=== PATIENT | male | born 1950 | race American Indian/Alaskan Native ===

== ENCOUNTER 2019-10-20 07:05 | Day surgery (SDC) | payer MEDICARE, MEDICAID ==
[2019-10-20 08:03] LABS: Basophils # (Auto) 0.1 K/mm3 (0.0-0.1); Basophils % (Auto) 0.8 % (0.0-1.8); Eosinophils # (Auto) 0.1 K/mm3 (0.0-0.4); Eosinophils % (Auto) 1.9 % (0.0-4.3); Hemoglobin 13.7 gm/dl (11.8-15.2); Lymphocytes # (Auto) 1.4 K/mm3 (1.2-5.4); Mean Corpuscular HGB Conc 33 % (32-34); Mean Corpuscular Volume 86 fl (84-94); Monocytes # (Auto) 0.5 K/mm3 (0.0-0.8); Monocytes % (Auto) 6.9 % (0.0-7.3); Platelet Count 271 K/mm3 (140-440); Red Blood Count 4.75 M/mm3 (3.65-5.03); Red Cell Distribution Width 14.1 % (13.2-15.2)
[2019-10-20] MEDS ORDERED: SODIUM CHLORIDE 0.9% 500 ML 500 ML ONE (08:13)
[2019-10-20 08:14] LABS: BUN/Creatinine Ratio 23; Blood Urea Nitrogen 16 mg/dL (9-20); Calcium 9.5 mg/dL (8.4-10.2); Hemolysis Index 7
[2019-10-20] MEDS: SODIUM CHLORIDE 0.9% 500 ML 500 ML IV SCH ×2 (08:17→11:09)
[2019-10-20] MEDS ORDERED: HEPARIN/NS 5000 UNIT/500ML 1,000 ML IR ONE (09:19)
[2019-10-20] MEDS ORDERED: NITROGLYCERIN SYRINGE 3 ML ONE (09:20)
[2019-10-20] MEDS: fentaNYL 100 MCG/2 ML INJ ONE ×2 (11:06→11:14)
[2019-10-20] MEDS: HEPARIN 10,000 UNITS/10 ML VIAL ONE ×3 (11:07→11:44)
[2019-10-20] MEDS: MIDAZOLAM 2 MG/2 ML INJ ONE ×2 (11:07→11:14)
[2019-10-20] MEDS: LIDOCAINE (2%) 20 MG/1 ML VIAL 20 ML MDV INFILTRATI ONE ×2 (11:07→11:14)
[2019-10-20] MEDS: VERAPAMIL 5 MG/2 ML INJ ONE ×2 (11:07→11:16)
--- NOTE | 2019-10-20 12:26 | Discharge Summary ---
Short Stay Discharge Plan Activity: advance as tolerated Weight Bearing Status: Partial Weight Bearing Diet: low fat, low cholesterol, low salt, diabetic Wound: keep clean and dry Special Instructions: no heavy lifting (3 days), hold Metformin (48 hrs only) Follow up with: JESICA HOLDER MD [Primary Care Provider] - 7 Days LUDIN LARA MD [Staff Physician] - 7 Days
[2019-10-20] MEDS ORDERED: SODIUM CHLORIDE 0.9% 1000 ML 1,000 ML IV SCH (12:30)
[2019-10-20] MEDS ORDERED: SODIUM CHLORIDE 0.9% 1000 ML 1,000 ML ONE (13:24)
--- NOTE | 2019-10-20 14:14 | Cardiac Catherization Report ---
CARDIAC CATHETERIZATION REPORT REASON FOR PROCEDURE: The patient is a 69-year-old man with heart failure, moderate severity cardiomyopathy, and an abnormal thallium stress test. He was recommended for a cardiac catheterization. PROCEDURES: 1. Left heart catheterization. 2. Selective left and right coronary angiography. 3. Left ventricular angiography. 4. Intravascular ultrasound interrogation of the left main coronary artery. 5. Sedation time, start 11:11, end 11:56. DESCRIPTION OF PROCEDURE: The patient was prepped and draped in a sterile fashion after informed consent. The right radial cath site was prepped and draped after a negative Sharad's test. The right radial artery was entered using Seldinger technique followed by placement of a 6-Welsh hydrophilic sheath. Routine radial cocktail was administered via the sheath. Selective left and right coronary angiography was performed using a #3.5 left Mike, and a #4 right Mike. There was a difficult catheter manipulation due to severe tortuosity of the right brachiocephalic trunk, catheter manipulation was difficult and challenging. Therefore, for the additional procedures of left ventricular catheterization and intravascular ultrasound of the left main stenosis, we switched to the right femoral artery approach for completion of the procedure. We turned our attention to the right femoral artery, which was entered again using the Seldinger technique followed by placement of a 6-Welsh sheath. A pigtail catheter was advanced into the left ventricle for left ventricular angiography. For interrogation of the left main, we then exchanged for a #4 left Mike guiding catheter and advanced to the left coronary ostium. A 0.[address] [employer] Maintenance Supervisor 50 guidewire was then introduced into the left main, and into the proximal LAD. Intravascular ultrasound was then deployed to the left main stenosis and appropriate interrogation of the proximal, mid and distal segments of the left main was performed. The catheters were then removed, post-IVUS angiograms were taken of the left main and left coronary system. The femoral sheath was removed and hemostasis achieved using an Angio-Seal device. The radial sheath was then also removed, and a TR band was placed for hemostasis. The patient was then returned to the postprocedure unit in stable condition. There were no complications. FINDINGS: HEMODYNAMICS: Left ventricular end-diastolic pressure was 18-20, following coronary angiography. Ascending aortic pressure was 155/86. There was no significant pressure gradient on pullback across the aortic valve. CORONARY ANGIOGRAPHY: There was an angiographic, 40-50% stenosis of the proximal left main, close to the ostium. Following this, the LAD and diagonal branches contained diffuse mild atherosclerosis, associated with [id number]-[id number] diffuse coronary calcification. The left circumflex artery contained diffuse mild atherosclerosis. The right coronary artery was dominant. This vessel contained multiple severe lesions. There was a focal 80% stenosis of the mid segment. This was followed by 2 sequential 90% stenosis of the distal AV groove segment, between the acute margin and the posterior descending branch. There was mild to moderate left ventricular systolic dysfunction, ejection fraction estimated at 40%, following an extrasystolic beat. INTRAVASCULAR ULTRASOUND: Intravascular ultrasound assessment of the left main stenosis was carried out. IVUS interrogation found mild concentric plaque throughout the length of the left main. The proximal segment contained a severe amount of concentric plaque with a minimum diameter of 2.5 mm, and an area stenosis of 59%. CONCLUSION: 1. Multivessel coronary artery disease. 2. Severe stenosis of the proximal left main, with a minimum diameter of 2.5 mm and an area stenosis of 59% on intravascular ultrasound imaging. 3. Dpgn-zr-fnwlrmai left ventricular systolic dysfunction, ejection fraction 40%. RECOMMENDATION: Optimal revascularization strategy will be coronary artery bypass surgery. JOB# [id number] JHONNY/ANDREI
[2019-10-20 18:01] VITALS: BP 137/84
== END 2019-10-20 18:38 | disposition home or self-care (01) ==
LOC: CATH 07:05
PROVIDERS: ATTEND Internal Medicine Cardiovascular Disease
DX: I11.0 Hypertensive heart disease with heart failure (principal); I50.9 Heart failure, unspecified; I42.9 Cardiomyopathy, unspecified; R94.39 Abnormal result of other cardiovascular function study; I25.10 Atherosclerotic heart disease of native coronary artery without angina pectoris; E11.59 Type 2 diabetes mellitus with other circulatory complications; Z79.899 Other long term (current) drug therapy; Z79.82 Long term (current) use of aspirin; Z98.890 Other specified postprocedural states; Z91.81 History of falling; Z86.73 Personal history of transient ischemic attack (TIA), and cerebral infarction without residual deficits; Z88.8 Allergy status to other drugs, medicaments and biological substances
CPT/HCPCS: 36415; 80048; 85025; 85347; 85610; 85730; 92978; 93005; 93458; 99156; 99157; C1753; C1760; C1769; C1887; C1894; J1644; J2250; J3010; J7030; J7040; Q9967

== ENCOUNTER 2019-12-02 11:18 | Observation (INO) | payer MEDICARE ==
--- NOTE | 2019-12-02 11:39 | Emergency Department Report ---
ED Neuro Deficit HPI - General Stated Complaint: POSS CVA Time Seen by Provider: 12/02/19 11:24 Source: patient Mode of arrival: Stretcher Limitations: No Limitations - History of Present Illness Initial Comments: 69-year-old male with a past medical history of previous CVA, CAD, elevated cholesterol, and diabetes presents to the hospital as a code stroke. Patient went immediately CT and received neurologic evaluation prior to my evaluation. Neurology was deemed that patient was not an acute stroke and not a TPA candidate. CT head was reported by radiologist questionable left cerebellar ischemic changes to correlate clinically. Neurologist states that patient does not have any cerebellar findings on exam. Patient was evaluated by me after above events. He states about 10:30 AM he was sitting down and watching TV when he felt lightheaded like he was going to pass out. Patient then vomited once and had fecal incontinence with mild diaphoresis. Patient denies headache, chest pain, shortness of breath, or abdominal pain. Prior to this episode patient was asymptomatic and was eating and drinking appropriately with last meal at breakfast. Patient also states he saw his PCP yesterday and had blood work and was told his cholesterol levels were "excellent". Patient reports history of multiple CVAs but denies any residual deficits. Patient feels better with resolution in symptoms at this time. As per medical record review patient was seen here for stroke symptoms in November 2013 and is noted to have chronic stable left hemiparesis without acute ischemic findings after work-up. His worsening neurologic symptoms at that time were thought to be functional. As per previous medical record review patient was also here in September 2019 with recommendation for revascularization procedure by cardiology with preferred outpatient treatment. Patient states coronary bypass surgery was recommended however, he opted not to obtain bypass for CAD because he was told he was at high risk for adverse events such as stroke. Patient had a cardiac cath 10/20/2019 showed multi vessel coronary artery disease. Severe stenosis of the proximal left main, with minimal diameter of 2.5 mm and an area of stenosis of 59% on intravascular ultrasound imaging. 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 heart PMD: DR Dia - Related Data Home Medications: Home Medications Medication Instructions Recorded Confirmed Last Taken Fish Oil/Borage/Flax/Om3,6,9 1 1,200 mg PO DAILY 10/20/19 12/02/19 10/19/19 [[place] 3-6-9 1,200 mg Softgel] Simvastatin 40 mg PO DAILY 10/20/19 12/02/19 10/19/19 Metformin HCl [metFORMIN] 1,000 mg PO BID 12/02/19 12/02/19 12/02/19 18:00 Previous Rx's Medication Instructions Recorded Last Taken Type Aspirin 81 mg PO QDAY #30 tablet 12/08/13 10/19/19 Rx Lisinopril [Zestril] 40 mg PO DAILY #30 tablet 12/08/13 10/19/19 Rx Allergies/Adverse Reactions: Allergies Allergy/AdvReac Type Severity Reaction Status Date / Time acetaminophen [From Percocet] Allergy Intermediate Dizziness Verified 10/20/19 07:29 oxycodone [From Percocet] Allergy Intermediate Dizziness Verified 10/20/19 07:29 ED Review of Systems ROS: Stated complaint: POSS CVA Other details as noted in HPI Comment: All other systems reviewed and negative ED Past Medical Hx - Past Medical History Hx Hypertension: Yes Hx CVA: Yes (x5 with no residual) Hx Diabetes: Yes - Surgical History Additional Surgical History: left arm ortho surgery - Social History Smoking Status: Former Smoker - Medications Home Medications: Home Medications Medication Instructions Recorded Confirmed Last Taken Type Aspirin 81 mg PO QDAY #30 tablet 12/08/13 12/02/19 10/19/19 Rx Lisinopril [Zestril] 40 mg PO DAILY #30 tablet 12/08/13 12/02/19 10/19/19 Rx Fish Oil/Borage/Flax/Om3,6,9 1 1,200 mg PO DAILY 10/20/19 12/02/19 10/19/19 History [[place] 3-6-9 1,200 mg Softgel] Simvastatin 40 mg PO DAILY 10/20/19 12/02/19 10/19/19 History Metformin HCl [metFORMIN] 1,000 mg PO BID 12/02/19 12/02/19 12/02/19 18:00 History ED Neuro Physical Exam - General Suspected Stroke: No - NIHSS Assessment Interval: Baseline 1a. Level of Consciousness: alert/keenly responsive 1b. LOC Questions: answers both correctly 1c. LOC Commands: performs tasks correctly 2. Best Gaze: normal 3. Visual: no visual loss 4. Facial Palsy: minor paralysis 5b. Motor Arm Right: no drift 5a. Motor Arm Left: no drift 6a. Motor Leg Left: no drift 6b. Motor Leg Right: no drift 7. Limb Ataxia: absent 8. Sensory: normal 9. Best Language: no aphasia 10. Dysarthria: normal 11. Extinction/Inattention: no abnormality Total Score: 1 Stroke Severity: Minor Stroke - Other Other exam information: General: No acute distress Head: Atraumatic Eyes: normal appearance ENT: Moist mucous membranes, edentulous Neck: Normal appearance, no midline tenderness Chest: Clear to auscultation bilaterally CV: Regular rate and rhythm Abdomen: Soft, normal bowel sounds, nontender, nondistended, no rebound or guarding Back: Normal inspection Extremity: Normal inspection, full range of motion Neuro: Alert O x 3, see NIH stroke scale exam Psych: Appropriate behavior Skin: No rash ED Course Vital Signs 12/02/19 12/02/19 11:19 12:00 Temperature 97.7 F Pulse Rate 62 75 Respiratory 17 15 Rate Blood Pressure 124/78 124/78 O2 Sat by Pulse 98 98 Oximetry - Lab Data Result diagrams: 12/02/19 11:42 12/03/19 05:03 Lab Results 12/02/19 12/02/19 12/02/19 Range/Units 11:42 11:42 11:42 WBC 9.2 (4.5-11.0) K/mm3 RBC 4.20 (3.65-5.03) M/mm3 Hgb 12.3 (11.8-15.2) gm/dl Hct 37.0 (35.5-45.6) % MCV 88 (84-94) fl MCH 29 (28-32) pg MCHC 33 (32-34) % RDW 14.0 (13.2-15.2) % Plt Count 256 (140-440) K/mm3 Lymph % (Auto) 12.2 L (13.4-35.0) % [place] % (Auto) 5.8 (0.0-7.3) % Eos % (Auto) 1.4 (0.0-4.3) % Baso % (Auto) 0.6 (0.0-1.8) % Lymph # 1.1 L (1.2-5.4) K/mm3 [place] # 0.5 (0.0-0.8) K/mm3 Eos # 0.1 (0.0-0.4) K/mm3 Baso # 0.1 (0.0-0.1) K/mm3 Seg Neutrophils % 80.0 H (40.0-70.0) % Seg Neutrophils # 7.3 (1.8-7.7) K/mm3 PT 13.5 (12.2-14.9) Sec. INR 1.05 (0.87-1.13) APTT 24.2 (24.2-36.6) Sec. Thrombin Time 15.3 (15.1-19.6) Sec. Sodium 136 L (137-145) mmol/L Potassium 4.4 (3.6-5.0) mmol/L Chloride 99.3 (98-107) mmol/L Carbon Dioxide 24 (22-30) mmol/L Anion Gap 17 mmol/L BUN 15 (9-20) mg/dL Creatinine 0.8 (0.8-1.5) mg/dL Estimated GFR > 60 ml/min BUN/Creatinine Ratio 19 % Glucose 149 H (75-100) mg/dL Calcium 8.9 (8.4-10.2) mg/dL Troponin T < 0.010 (0.00-0.029) ng/mL - Radiology Data Radiology results: report reviewed CT HEAD WITHOUT CONTRAST INDICATION : MAIN: CODE STROKE CALL [phone] . TECHNIQUE: Axial imaging performed from the skull apex through the skull base without the use of contrast. Sagittal and coronal reformatted images. All CT scans at this location are performed using CT dose reduction for ALARA by means of automated exposure control. COMPARISON: None FINDINGS: Parenchyma: Mild diffuse cortical volume loss and mild chronic microangiopathy in the white matter is identified. There are 2 chronic lacunar infarcts in the right basal ganglia measuring up to 1 cm. A 5 mm chronic lacunar infarct is identified in the left basal ganglia. There is a questionable 3 cm area of diminished attenuation in the inferior left cerebellum. There is no evidence for hemorrhage, mass, mass effect or extra-axial fluid collection. Ventricles: Ventricles are normal in size and appear symmetric. Bones: No acute osseous abnormality. Sinuses: Sinuses and mastoid air cells are clear. Soft tissues: Soft tissues including the orbits appear normal. IMPRESSION: No evidence for hemorrhage, mass or mass effect. Questionable area of diminished attenuation in the left cerebellum which could represent an ischemic infarct. Please correlate with the patient's clinical presentation. Volume loss. Chronic lacunar infarcts in both basal ganglia as described. - Medical Decision Making Patient presents with near syncope. No acute stroke findings noted. CT report noted and patient does not have cerebellar findings on examination. Neurologist recommends inpatient MRI based on CT report. Patient has significant CAD with recommended revascularization 2 months ago which patient declined. EKG uncha nged, initial troponin normal with repeat level pending. Pt will be admitted to hospitalist service with cardiology consult. Critical Care Time: No Critical care attestation.: If time is entered above; I have spent that time in minutes in the direct care of this critically ill patient, excluding procedure time. ED Disposition Clinical Impression: Near syncope, Diabetes, History of CVA (cerebrovascular accident) CAD (coronary artery disease) Qualifiers: Coronary Disease-Associated Artery/Lesion type: burns paiute artery Disposition: OP ADMIT IP TO THIS HOSP Is pt being admited?: Yes Condition: Stable Time of Disposition: 12:50 (Dr Valdez/hosp)
--- NOTE | 2019-12-02 11:44 | Consultation ---
History of Present Illness - Reason for Consult Consult date: 12/02/19 sa - History of Present Illness [facility] Consult Services Date of Service: 12/02/2019 11:17:06 Impression: syncope - no new stroke like deficits vs worsening of old stroke deficits Comments/Sign-Out: 69yo M w pmh of stroke x 3 (last in 2012 on plavix), unclear if he had facial asymmetry before who had syncope this am. He was noted to have facial asymmetry. He thinks his face looks as usual. nihss 1 for pre-existent mild facial asymmetry. Not candidate for tpa or steve. Presentation not c/w proximal LVO. Metrics: Last Known Well: 12/02/2019 10:30:00 [facility] Notification Time: 12/02/2019 11:16:33 Arrival Time: 12/02/2019 11:18:00 Stamp Time: 12/02/2019 11:17:06 Time First Login Attempt: 12/02/2019 11:21:43 Video Start Time: 12/02/2019 11:21:43 Symptoms: facial droop NIHSS Start Assessment Time: 12/02/2019 11:30:00 Patient is not a candidate for tPA. Patient was not deemed candidate for tPA thrombolytics because of Resolved symptoms (no residual disabling symptoms). Video End Time: 12/02/2019 11:37:00 CT head showed no acute hemorrhage or acute core infarct. Clinical Presentation is not Suggestive of Large Vessel Occlusive Disease ED Physician notified of diagnostic impression and management plan on 12/02/2019 11:37:04 Our recommendations are outlined below. Recommendations: Activate Stroke Protocol Admission/Order Set Stroke/Telemetry Floor Neuro Checks Bedside Swallow Eval DVT Prophylaxis IV Fluids, Normal Saline Head of Bed 30 Degrees Euglycemia and Avoid Hyperthermia (PRN Acetaminophen) Antiplatelet Therapy Recommended home therapy Routine Consultation with Inhouse Neurology for Follow up Care Sign Out: Discussed with Emergency Department Provider History of Present Illness: Patient is a 69 year old Male. Patient was brought by EMS for symptoms of facial droop 69yo M w pmh of stroke x 3 (last in 2012) w residual L HP, unclear if he had facial asymmetry before who had syncope this am. He was noted to have facial asymmetry. He thinks his face looks as usual. Last seen normal was within 4.5 hours. There is no history of Recent Anticoagulants. There is no history of recent stroke. Examination: 1A: Level of Consciousness - Alert; keenly responsive + 0 1B: Ask Month and Age - Both Questions Right + 0 1C: Blink Eyes & Squeeze Hands - Performs Both Tasks + 0 2: Test Horizontal Extraocular Movements - Normal + 0 3: Test Visual [place]all[place] - No Visual Loss + 0 4: Test Facial Palsy (Use Grimace if Obtunded) - Minor paralysis (flat nasolabial fold, smile asymmetry) + 1 5A: Test Left Arm Motor Drift - No Drift for 10 Seconds + 0 5B: Test Right Arm Motor Drift - No Drift for 10 Seconds + 0 6A: Test Left Leg Motor Drift - No Drift for 5 Seconds + 0 6B: Test Right Leg Motor Drift - No Drift for 5 Seconds + 0 7: Test Limb Ataxia (FNF/Heel-Quezada) - No Ataxia + 0 8: Test Sensation - Normal; No sensory loss + 0 9: Test Language/Aphasia - Normal; No aphasia + 0 10: Test Dysarthria - Normal + 0 11: Test Extinction/Inattention - No abnormality + 0 NIHSS Score: 1 Due to the immediate potential for life-threatening deterioration due to underlying acute neurologic illness, I spent 35 minutes providing critical care. This time includes time for face to face visit via telemedicine, review of medical records, imaging studies and discussion of findings with providers, the patient and/or family. Dr Anaya Patel [facility] Case [id number] Medications and Allergies Allergies Allergy/AdvReac Type Severity Reaction Status Date / Time acetaminophen [From Percocet] Allergy Intermediate Dizziness Verified 10/20/19 07:29 oxycodone [From Percocet] Allergy Intermediate Dizziness Verified 10/20/19 07:29 Home Medications Medication Instructions Recorded Confirmed Last Taken Type Aspirin 81 mg PO QDAY #30 tablet 12/08/13 10/20/19 10/19/19 Rx Lisinopril [Zestril] 40 mg PO DAILY #30 tablet 12/08/13 10/20/19 10/19/19 Rx Fish Oil/Borage/Flax/Om3,6,9 1 1,200 mg PO DAILY 10/20/19 10/20/19 10/19/19 History [[place] 3-6-9 1,200 mg Softgel] Nitroglycerin [Nitrostat] 0.4 mcg SL Q3MIN PRN 10/20/19 10/20/19 10/19/19 History Simvastatin 40 mg PO DAILY 10/20/19 10/20/19 10/19/19 History
[2019-12-02 11:48] LABS: Basophils # (Auto) 0.1 K/mm3 (0.0-0.1); Basophils % (Auto) 0.6 % (0.0-1.8); Eosinophils # (Auto) 0.1 K/mm3 (0.0-0.4); Eosinophils % (Auto) 1.4 % (0.0-4.3); Hemoglobin 12.3 gm/dl (11.8-15.2); Lymphocytes # (Auto) 1.1 K/mm3 (1.2-5.4); Lymphocytes % (Auto) 12.2 % (13.4-35.0); Mean Corpuscular HGB Conc 33 % (32-34); Mean Corpuscular Volume 88 fl (84-94); Monocytes # (Auto) 0.5 K/mm3 (0.0-0.8); Monocytes % (Auto) 5.8 % (0.0-7.3); Platelet Count 256 K/mm3 (140-440)
--- NOTE | 2019-12-02 11:52 | Cat Scan Report ---
CT HEAD WITHOUT CONTRAST INDICATION : MAIN: CODE STROKE CALL [phone] . TECHNIQUE: Axial imaging performed from the skull apex through the skull base without the use of con trast. Sagittal and coronal reformatted images. All CT scans at this location are performed using C T dose reduction for ALARA by means of automated exposure control. COMPARISON: None FINDINGS: Parenchyma: Mild diffuse cortical volume loss and mild chronic microangiopathy in the white matter i s identified. There are 2 chronic lacunar infarcts in the right basal ganglia measuring up to 1 cm. A 5 mm chronic lacunar infarct is identified in the left basal ganglia. There is a questionable 3 cm a rosita of diminished attenuation in the inferior left cerebellum. There is no evidence for hemorrhage, m ass, mass effect or extra-axial fluid collection. Ventricles: Ventricles are normal in size and appear symmetric. Bones: No acute osseous abnormality. Sinuses: Sinuses and mastoid air cells are clear. Soft tissues: Soft tissues including the orbits appear normal. IMPRESSION: No evidence for hemorrhage, mass or mass effect. Questionable area of diminished attenuation in the l eft cerebellum which could represent an ischemic infarct. Please correlate with the patient's clinica l presentation. Volume loss. Chronic lacunar infarcts in both basal ganglia as described. These findings were discussed with Dr. Duval in the emergency department at 1146 hours. Signer Name: Cesar Thomas Jr, MD Signed: 12/02/2019 11:47 AM Workstation Name: [id number]
[2019-12-02 11:58] LABS: INR 1.05 (0.87-1.13); Partial Thromboplastin Time 24.2 Sec. (24.2-36.6)
[2019-12-02 11:59] LABS: Thrombin Time 15.3 Sec. (15.1-19.6)
[2019-12-02 12:14] LABS: BUN/Creatinine Ratio 19; Blood Urea Nitrogen 15 mg/dL (9-20); Calcium 8.9 mg/dL (8.4-10.2); Hemolysis Index 2
--- NOTE | 2019-12-02 13:01 | XRay Report ---
CHEST 1 VIEW INDICATION: near syncope. COMPARISON: None. FINDINGS: Support devices: None. Heart: Normal. Lungs/Pleura: No acute pulmonary or pleural findings. IMPRESSION: 1. No acute findings. Signer Name: Renzo Cornejo MD Signed: 12/02/2019 12:57 PM Workstation Name: [id number]
[2019-12-02] MEDS ORDERED: ONDANSETRON 4 MG/2 ML INJ IV PRN (14:18)
[2019-12-02] MEDS ORDERED: ACETAMINOPHEN 325 MG TAB PO PRN (14:18)
[2019-12-02] MEDS ORDERED: NITROGLYCERIN 0.4 MG TAB SUBL SL SCH (14:20)
[2019-12-02] MEDS ORDERED: SODIUM CHLORIDE 0.9% 500 ML 500 ML IV ONE (14:24)
--- NOTE | 2019-12-02 14:25 | History and Physical Report ---
History of Present Illness Chief complaint: I got lightheaded History of present illness: 69 YO Male with HTN, HLD, CAD but patient declines CABG at this time, DM presents to ED for evaluation. Patient states that he was in his usual state of health and was sitting on his couch watching television. Patient states that he had been watching television for approximately 2 hours when he experienced a sudden onset of "lightheadedness" and then "lost control of my bowels". EMS was notified and upon arrival the patient was found to be in distress and subsequently transported to [facility] for further evaluation and care. Patient seen and evaluated in the emergency department. Lab and imaging studies reviewed. A code stroke was initiated by EMS staff and upon arrival the patient was taken directly to CT for brain imaging. CT scan of the brain does not reveal evidence of acute stroke. Patient found to have symptoms consistent with presyncope, as well as benign positional vertigo. Patient placed in observation status and admitted to telemetry for further evaluation and care due to increased risk of decompensation. Patient denies fever, chills, chest pain, palpitations, productive cough, recent ill contacts, seizure, fall, trauma, headache, vision loss, vision changes, saddle anesthesia, changes in speech, recent ill contacts, muscular weakness, or known exposure to COVID-19. Tele-neurology was consulted in ED. prior admission on 12/02/2013 reviewed. All medication listed at the time of my admission has been reconciled. Advanced care planning conducted in ED. Physical therapy consult placed in ED for Anupam-Hallpike test. Past History Past Medical History: CAD, diabetes, hypertension, other (See HPI) Past Surgical History: Other (Left arm surgery) Social history: . denies: smoking, alcohol abuse, prescription drug abuse Family history: diabetes, hypertension Medications and Allergies Allergies Allergy/AdvReac Type Severity Reaction Status Date / Time acetaminophen [From Percocet] Allergy Intermediate Dizziness Verified 10/20/19 07:29 oxycodone [From Percocet] Allergy Intermediate Dizziness Verified 10/20/19 07:29 Home Medications Medication Instructions Recorded Confirmed Last Taken Type Aspirin 81 mg PO QDAY #30 tablet 12/08/13 10/20/19 10/19/19 Rx Lisinopril [Zestril] 40 mg PO DAILY #30 tablet 12/08/13 10/20/19 10/19/19 Rx Fish Oil/Borage/Flax/Om3,6,9 1 1,200 mg PO DAILY 10/20/19 10/20/19 10/19/19 History [[place] 3-6-9 1,200 mg Softgel] Nitroglycerin [Nitrostat] 0.4 mcg SL Q3MIN PRN 10/20/19 10/20/19 10/19/19 History Simvastatin 40 mg PO DAILY 10/20/19 10/20/19 10/19/19 History Active Meds: Active Medications Acetaminophen (Tylenol) 650 mg PO Q4H PRN PRN Reason: Pain MILD(1-3)/Fever >100.5/BOSWELL Aspirin (Aspirin) 81 mg PO QDAY SHAWN Lisinopril (Zestril) 40 mg PO DAILY SHAWN Miscellaneous Medication (Fish Oil/Borage/Flax/Om3,6,9 1 [[place] 3-6-9 1,200 Mg Softgel]) 1,200 mg PO DAILY SHAWN Miscellaneous Medication (Simvastatin [Simvastatin]) 40 mg PO DAILY [facility] Nitroglycerin (Nitrostat) 0.0004 mg SL Q3MIN PRN PRN Reason: Chest Pain Ondansetron HCl (Zofran) 4 mg IV Q8H PRN PRN Reason: Nausea And Vomiting Sodium Chloride (Sodium Chloride Flush Syringe 10 Ml) 10 ml IV BID SHAWN Sodium Chloride (Sodium Chloride Flush Syringe 10 Ml) 10 ml IV PRN PRN PRN Reason: LINE FLUSH Review of Systems Constitutional: other (Lightheadedness), no weight loss, no weight gain, no fever, no chills, no sweats Ears, nose, mouth and throat: no ear pain, no ear discharge, no tinnitis, no decreased hearing, no nasal congestion, no nasal discharge Cardiovascular: lightheadedness, no chest pain, no orthopnea, no palpitations, no edema, no syncope, no dyspnea on exertion Respiratory: no cough, no cough with sputum, no excessive sputum, no shortness of breath, no dyspnea on exertion Gastrointestinal: nausea, vomiting, no abdominal pain, no diarrhea, no change in bowel habits, no hematemesis Genitourinary Male: no hematuria, no flank pain, no discharge Rectal: no pain, no incontinence, no bleeding Musculoskeletal: no neck pain, no shooting arm pain, no low back pain, no shooting leg pain Integumentary: no rash (This is a little paperwork for overnight stay), no pruritis, no sores, no wounds, no jaundice Neurological: no head injury, no paralysis, no parathesias, no numbness, no tingling, no seizures, no syncope, no tremors, no headaches, no migraines, no t ic, no convulsions, no change in mentation, no confusion Psychiatric: no anxiety, no memory loss, no change in sleep habits, no insomnia, no hypersomnia, no change in libido, no disorientation Endocrine: no cold intolerance, no heat intolerance, no excessive thirst, no polyuria Hematologic/Lymphatic: no easy bruising, no easy bleeding, no lymphadenopathy Allergic/Immunologic: no urticaria, no allergic rhinitis, no persistent infections, no anaphylaxis Exam - Constitutional Vitals: Temp Pulse Resp BP Pulse Ox 97.7 F 62 19 113/64 98 12/02/19 12:30 12/02/19 12:30 12/02/19 12:30 12/02/19 12:30 12/02/19 12:30 General appearance: Present: mild distress - EENT Eyes: Present: PERRL ENT: hearing intact, clear oral mucosa - Neck Neck: Present: supple, normal ROM - Respiratory Respiratory effort: normal Respiratory: bilateral: CTA - Cardiovascular Heart Sounds: Present: S1 & S2. Absent: rub, click - Extremities Extremities: pulses symmetrical, No edema Peripheral Pulses: within normal limits - Abdominal General gastrointestinal: Present: soft, non-tender, non-distended, normal bowel sounds Male genitourinary: Present: normal - Integumentary Integumentary: Present: clear, warm, dry - Musculoskeletal Musculoskeletal: other (Chronic bilateral lower extremity weakness) - Psychiatric Psychiatric: appropriate mood/affect, intact judgment & insight - Neurologic Neurologic: CNII-XII intact, moves all extremities HEART Score - HEART Score Troponin: Troponin T < 0.010 ng/mL (0.00-0.029) 12/02/19 11:42 Results - Labs CBC & Chem 7: 12/02/19 11:42 12/02/19 11:42 Labs: Abnormal lab results 12/02/19 12/02/19 Range/Units 11:42 11:42 Lymph % (Auto) 12.2 L (13.4-35.0) % Lymph # 1.1 L (1.2-5.4) K/mm3 Seg Neutrophils % 80.0 H (40.0-70.0) % Sodium 136 L (137-145) mmol/L Glucose 149 H (75-100) mg/dL Assessment and Plan - Patient Problems (1) Pre-syncope Current Visit: Yes Status: Acute Plan to address problem: CT head, neuro check, seizure precaution, tele-neurology consulted in ED, supportive care, Anupam-Hallpike test ordered at the time of admission, outpatient neurology follow-up for further testing/MRI evaluation as per neurology they really found to order an MRI patient service (2) Hypertension Current Visit: Yes Status: Acute Qualifiers: Hypertension type: essential hypertension Qualified Code(s): I10 - Essential (primary) hypertension Plan to address problem: Monitor blood pressure every shift, patient is normotensive at this time, continue medical management. (3) Diabetes Current Visit: Yes Status: Acute Plan to address problem: Consistent carbohydrate diet, Accu-Chek, sliding scale insulin therapy, hypoglycemia protocol (4) Coronary artery disease Current Visit: Yes Status: Acute Qualifiers: Coronary Disease-Associated Artery/Lesion type: [place] artery Plan to address problem: Supportive care, risk factor reduction therapy, antiplatelet therapy, statin therapy, lipid panel, outpatient coronary artery bypass grafting has been rec ommended. Awaiting patient decision regarding care plan. (5) DVT prophylaxis Current Visit: Yes Status: Acute Plan to address problem: SCD to bilateral lower extremities while in bed, patient is ambulatory. (6) Advance care planning Current Visit: Yes Status: Acute Plan to address problem: Patient is full code, disease education conducted, patient acknowledges understanding and agreement with care plan, +30 minutes.
--- NOTE | 2019-12-02 17:41 | Consultation ---
History of Present Illness Consult date: 12/02/19 Consult reason: syncope History of present illness: The patient is a 69-year-old man with a history of coronary artery disease and i schemic cardiomyopathy. Last month, we performed a cardiac catheterization that revealed multivessel coronary artery disease including a significant stenosis of the mid to distal left main coronary artery. He was referred to [place] for CT surgery evaluation. After all the preparation was done for coronary artery bypass, on the night before surgery he suddenly decided against surgery, worried about the risks. He thought he might prefer coronary stenting if that could be done. We then referred him to undergo multivessel stenting including unprotected left main intervention. After this was scheduled, he again refused on the basis of being quoted a small risk of emergency surgery associated with multivessel intervention. He is therefore on medical therapy for his coronary artery disease by his choice. His left ventricular ejection fraction was 40%. The patient presents to the hospital at this time with dizziness and near syncope. He states that he was sitting in his living room and had just taking all his medications. He suddenly felt lightheaded and nauseous, got up to go to the bathroom and vomited twice, and almost passed out. There was no chest pain, no palpitations, and no vertigo. He presented to the emergency room where he was evaluated and referred for admission. There has been no further symptoms since his presentation. EKG is normal sinus rhythm with no acute ischemic changes. Past History Past Medical History: CAD, diabetes, heart failure, hypertension, other (See HPI) Past Surgical History: Other (Left arm surgery) Social history: . denies: smoking, alcohol abuse, prescription drug abuse Family history: diabetes, hypertension Medications and Allergies Allergies Allergy/AdvReac Type Severity Reaction Status Date / Time acetaminophen [From Percocet] Allergy Intermediate Dizziness Verified 10/20/19 07:29 oxycodone [From Percocet] Allergy Intermediate Dizziness Verified 10/20/19 07:29 Home Medications Medication Instructions Recorded Confirmed Last Taken Type Aspirin 81 mg PO QDAY #30 tablet 12/08/13 12/02/19 10/19/19 Rx Lisinopril [Zestril] 40 mg PO DAILY #30 tablet 12/08/13 12/02/19 10/19/19 Rx Fish Oil/Borage/Flax/Om3,6,9 1 1,200 mg PO DAILY 10/20/19 12/02/19 10/19/19 History [[place] 3-6-9 1,200 mg Softgel] Simvastatin 40 mg PO DAILY 10/20/19 12/02/19 10/19/19 History Metformin HCl [metFORMIN] 1,000 mg PO BID 12/02/19 12/02/19 12/02/19 18:00 History Active Meds: Active Medications Acetaminophen (Tylenol) 650 mg PO Q4H PRN PRN Reason: Pain MILD(1-3)/Fever >100.5/BOSWELL Aspirin (Aspirin) 81 mg PO QDAY [facility] Fish Oil (Fish Oil) 1,000 mg PO QDAY [facility] Lisinopril (Zestril) 40 mg PO DAILY [facility] Nitroglycerin (Nitrostat) 0.4 mg SL DIRECT SHAWN Ondansetron HCl (Zofran) 4 mg IV Q8H PRN PRN Reason: Nausea And Vomiting Pravastatin Sodium (Pravachol) 80 mg PO QDAY [facility] Sodium Chloride (Sodium Chloride Flush Syringe 10 Ml) 10 ml IV BID [facility] Sodium Chloride (Sodium Chloride Flush Syringe 10 Ml) 10 ml IV PRN PRN PRN Reason: LINE FLUSH Review of Systems Cardiovascular: syncope, lightheadedness, no chest pain, no orthopnea, no palpitations, no rapid/irregular heart beat, no edema, no shortness of breath Physical Examination Vital Signs Temp Pulse Resp BP Pulse Ox 97.7 F 62 17 124/78 98 12/02/19 11:19 12/02/19 11:19 12/02/19 11:19 12/02/19 11:19 12/02/19 11:19 General appearance: no acute distress HEENT: Positive: PERRL Neck: Positive: neck supple Cardiac: Positive: Reg Rate and Rhythm Lungs: Positive: clear to auscultation Neuro: Positive: Grossly Intact Abdomen: Positive: Soft Male genitourinary: Positive: deferred Skin: Positive: Clear Extremities: Absent: edema Results 12/02/19 11:42 12/03/19 05:03 Coagulation 12/02/19 Range/Units 11:42 PT 13.5 (12.2-14.9) Sec. INR 1.05 (0.87-1.13) APTT 24.2 (24.2-36.6) Sec. CBC 12/02/19 Range/Units 11:42 WBC 9.2 (4.5-11.0) K/mm3 RBC 4.20 (3.65-5.03) M/mm3 Hgb 12.3 (11.8-15.2) gm/dl Hct 37.0 (35.5-45.6) % Plt Count 256 (140-440) K/mm3 Lymph # 1.1 L (1.2-5.4) K/mm3 [place] # 0.5 (0.0-0.8) K/mm3 Eos # 0.1 (0.0-0.4) K/mm3 Baso # 0.1 (0.0-0.1) K/mm3 Comprehensive Metabolic Panel 12/02/19 Range/Units 11:42 Sodium 136 L (137-145) mmol/L Potassium 4.4 (3.6-5.0) mmol/L Chloride 99.3 (98-107) mmol/L Carbon Dioxide 24 (22-30) mmol/L BUN 15 (9-20) mg/dL Creatinine 0.8 (0.8-1.5) mg/dL Glucose 149 H (75-100) mg/dL Calcium 8.9 (8.4-10.2) mg/dL EKG interpretations - Telemetry EKG Rhythm: Sinus Rhythm Assessment and Plan - Patient Problems (1) Near syncope Current Visit: Yes Status: Acute Plan to address problem: The patient's presentation of near syncope associated with nausea and vomiting just after taking his medications may suggest a vasa depressor reaction. There was no vertigo, no palpitations or other clinical suggestion of a primary cardiac event. If no dysrhythmias are noted on overnight telemetry, the patient will be recommended for discharge, and we will see him in the office for a 30-day event monitor as follow-up. I will also instruct him to stagger his medications through the day, and avoid taking multiple medications all at once to avoid a possible GI reaction to medications. (2) CAD (coronary artery disease) Current Visit: Yes Status: Acute Plan to address problem: Patient is coronary artery disease is stable and asymptomatic. We will continue optimal medical therapy as patient's preference.
[2019-12-03 06:11] LABS: Alanine Aminotransferase 18 units/L (7-56); Albumin 3.7 g/dL (3.9-5); BUN/Creatinine Ratio 18; Blood Urea Nitrogen 11 mg/dL (9-20); Calcium 8.8 mg/dL (8.4-10.2); Hemolysis Index 14
[2019-12-03 09:48] VITALS: BP 106/63
[2019-12-03] MEDS ORDERED: PRAVASTATIN 80 MG TAB PO SCH (10:00)
[2019-12-03] MEDS ORDERED: FISH OIL PO SCH (10:00)
[2019-12-03] MEDS ORDERED: ASPIRIN 325 MG TAB PO SCH (10:00)
[2019-12-03] MEDS ORDERED: LISINOPRIL 40 MG TAB PO SCH (10:00)
[2019-12-03] MEDS ORDERED: FLAX PO SCH (10:00)
[2019-12-03] MEDS ORDERED: BORAGE PO SCH (10:00)
[2019-12-03] MEDS ORDERED: [UNRECOGNIZED DRUG - OTHER] PO SCH (10:00)
[2019-12-03] MEDS ORDERED: NON-FORMULARY EACH (Simvastatin [Simvastatin] 40 MG) PO SCH (10:00)
[2019-12-03] MEDS ORDERED: OMEGA-3 FATTY ACIDS/FISH OIL 1 GRAM CAP PO SCH (10:00)
--- NOTE | 2019-12-03 10:45 | Progress Note ---
Assessment and Plan Assessment and plan: Syncope. CT scan revealed no evidence for hemorrhage, mass or mass-effect. However, there is a questionable area which could represent an ischemic infarct in the left cerebellum. Check MRI. Check echocardiogram. Hypertension. Continue antihypertensive medications. Diabetes mellitus type 2. Continue Accu-Cheks and sliding scale insulin. Coronary artery disease. Continue supportive care. Cardiology following. DVT prophylaxis. Continue SCDs. History Interval history: Patient still reports feeling dizzy. No new issues overnight. Hospitalist Physical - Constitutional Vitals: Temp Pulse Resp BP Pulse Ox 98.7 F 81 20 106/63 95 12/03/19 04:25 12/03/19 09:47 12/03/19 07:16 12/03/19 09:47 12/03/19 07:16 General appearance: Present: no acute distress - EENT Eyes: Present: PERRL, EOM intact ENT: hearing intact, clear oral mucosa, dentition normal - Neck Neck: Present: supple, normal ROM - Respiratory Respiratory effort: normal Respiratory: bilateral: CTA - Cardiovascular Rhythm: regular Heart Sounds: Present: S1 & S2. Absent: gallop, rub - Extremities Extremities: no ischemia, No edema, Full ROM - Abdominal General gastrointestinal: soft, non-tender, non-distended, normal bowel sounds - Integumentary Integumentary: Present: clear, warm, dry - Neurologic Neurologic: CNII-XII intact, moves all extremities HEART Score - HEART Score Troponin: Troponin T < 0.010 ng/mL (0.00-0.029) 12/02/19 14:40 Results - Labs CBC & Chem 7: 12/02/19 11:42 12/03/19 05:03 Labs: Laboratory Last Values WBC 9.2 K/mm3 (4.5-11.0) 12/02/19 11:42 RBC 4.20 M/mm3 (3.65-5.03) 12/02/19 11:42 Hgb 12.3 gm/dl (11.8-15.2) 12/02/19 11:42 Hct 37.0 % (35.5-45.6) 12/02/19 11:42 MCV 88 fl (84-94) 12/02/19 11:42 MCH 29 pg (28-32) 12/02/19 11:42 MCHC 33 % (32-34) 12/02/19 11:42 RDW 14.0 % (13.2-15.2) 12/02/19 11:42 Plt Count 256 K/mm3 (140-440) 12/02/19 11:42 Lymph % (Auto) 12.2 % (13.4-35.0) L 12/02/19 11:42 [place] % (Auto) 5.8 % (0.0-7.3) 12/02/19 11:42 Eos % (Auto) 1.4 % (0.0-4.3) 12/02/19 11:42 Baso % (Auto) 0.6 % (0.0-1.8) 12/02/19 11:42 Lymph # 1.1 K/mm3 (1.2-5.4) L 12/02/19 11:42 [place] # 0.5 K/mm3 (0.0-0.8) 12/02/19 11:42 Eos # 0.1 K/mm3 (0.0-0.4) 12/02/19 11:42 Baso # 0.1 K/mm3 (0.0-0.1) 12/02/19 11:42 Seg Neutrophils % 80.0 % (40.0-70.0) H 12/02/19 11:42 Seg Neutrophils # 7.3 K/mm3 (1.8-7.7) 12/02/19 11:42 PT 13.5 Sec. (12.2-14.9) 12/02/19 11:42 INR 1.05 (0.87-1.13) 12/02/19 11:42 APTT 24.2 Sec. (24.2-36.6) 12/02/19 11:42 Thrombin Time 15.3 Sec. (15.1-19.6) 12/02/19 11:42 Sodium 137 mmol/L (137-145) 12/03/19 05:03 Potassium 4.1 mmol/L (3.6-5.0) 12/03/19 05:03 Chloride 102.3 mmol/L (98-107) 12/03/19 05:03 Carbon Dioxide 22 mmol/L (22-30) 12/03/19 05:03 Anion Gap 17 mmol/L 12/03/19 05:03 BUN 11 mg/dL (9-20) 12/03/19 05:03 Creatinine 0.6 mg/dL (0.8-1.5) L 12/03/19 05:03 Estimated GFR > 60 ml/min 12/03/19 05:03 BUN/Creatinine Ratio 18 % 12/03/19 05:03 Glucose 108 mg/dL (75-100) H 12/03/19 05:03 POC Glucose 132 (70-105) H 12/03/19 07:51 Calcium 8.8 mg/dL (8.4-10.2) 12/03/19 05:03 Magnesium 2.30 mg/dL (1.7-2.3) 12/02/19 14:40 Total Bilirubin 0.30 mg/dL (0.1-1.2) 12/03/19 05:03 AST 17 units/L (5-40) 12/03/19 05:03 ALT 18 units/L (7-56) 12/03/19 05:03 Alkaline Phosphatase 41 units/L (35-129) 12/03/19 05:03 Troponin T < 0.010 ng/mL (0.00-0.029) 12/02/19 14:40 Total Protein 6.7 g/dL (6.3-8.2) 12/03/19 05:03 Albumin 3.7 g/dL (3.9-5) L 12/03/19 05:03 Albumin/Globulin Ratio 1.2 % 12/03/19 05:03 Chung/IV: Voiding Method Toilet IV Catheter Type [Left Forearm INT / Saline Lock ] IV Catheter Type [Left Wrist] Peripheral IV Active Medications - Current Medications Current Medications: Generic Name Dose Route Start Last Admin Trade Name Freq PRN Reason Stop Dose Admin Acetaminophen 650 mg 12/02/19 14:18 Tylenol PO Q4H PRN Pain MILD(1-3)/Fever >100.5/BOSWELL Aspirin 81 mg 12/03/19 10:00 12/03/19 09:47 Aspirin PO 81 mg QDAY SHAWN Administration Fish Oil 1,000 mg 12/03/19 10:00 12/03/19 09:47 Fish Oil PO 1,000 mg QDAY SHAWN Administration Lisinopril 40 mg 12/03/19 10:00 12/03/19 09:47 Zestril PO Not Given DAILY [facility] Nitroglycerin 0.4 mg 12/02/19 14:20 Nitrostat SL DIRECT [facility]AWN Ondansetron HCl 4 mg 12/02/19 14:18 Zofran IV Q8H PRN Nausea And Vomiting Pneumococcal Polyvalent Vaccine 0.5 ml 12/03/19 12:00 Pneumovax 23 IM 12/03/19 12:01 .ONCE ONE Pravastatin Sodium 80 mg 12/03/19 10:00 12/03/19 09:48 Pravachol PO 80 mg QDAY SHAWN Administration Sodium Chloride 10 ml 12/02/19 22:00 12/03/19 09:48 Sodium Chloride Flush Syringe 10 Ml IV 10 ml BID SHAWN Administration Sodium Chloride 10 ml 12/02/19 14:18 Sodium Chloride Flush Syringe 10 Ml IV PRN PRN LINE FLUSH
--- NOTE | 2019-12-03 11:04 | Event Note ---
Date: 12/03/19 The patient's presentation of near syncope associated with nausea and vomiting just after taking his medications may suggest a vasa depressor reaction. There was no vertigo, no palpitations or other clinical suggestion of a primary cardiac event. If no dysrhythmias are noted on overnight telemetry, the patient will be recommended for discharge, and we will see him in the office for a 30-day event monitor as follow-up. I will also instruct him to stagger his medications through the day, and avoid taking multiple medications all at once to avoid a possible GI reaction to medications.
[2019-12-03] MEDS ORDERED: PNEUMOCOCCAL 23 Valent 0.5 ML VIAL IM ONE (12:00)
--- NOTE | 2019-12-04 07:54 | Discharge Summary ---
Providers - Providers Date of Admission: 12/02/19 14:18 Date of discharge: 12/04/19 Attending physician: KATERINE MALDONADO 12/02/19 12:48 Consult to Physician [CONS] Urgent Comment: Dr. Duval notified Dr. Lara @ 12:46- [facility] Consulting Provider: LUDIN LARA Physician Instructions: Reason For Exam: near syncope, hx of cad 12/02/19 14:19 Physical Therapy Evaluation and Treat [CONS] Routine Comment: Reason For Exam: Anupam Hallpike test Primary care physician: NAYELI HOLDER Hospitalization Reason for admission: syncope Condition: Stable Hospital course: 69 YO Male with HTN, HLD, CAD, ischemic cardiomyopathy but patient declines CABG at this time, DM presents to ED for evaluation of dizziness and bowel incontinence. Patient states that he had been watching television for approximately 2 hours when he experienced a sudden onset of "lightheadedness" and then "lost control of my bowels". EMS was notified and upon arrival the patient was found to be in distress and subsequently transported to [facility] for further evaluation and care. The patient was admitted with a diagnosis of syncope and was seen by cardiology in consultation. EKG showed normal sinus rhythm with no acute ischemic changes. There was no evidence of vertigo, palpitations or other suggestion of a primary cardiac event. Patient was monitored on telemetry and had no dysrhythmia. On hospital day 2, patient refused all his procedures such as MRI/MRA and echocardiogram. Patient signed out AMA. Dedicated discharge time 32 minutes. Disposition: [id number] LEFT AGAINST MED ADVICE - Discharge Diagnoses (1) Coronary artery disease Status: Acute Qualifiers: Coronary Disease-Associated Artery/Lesion type: [place] artery (2) Hypertension Status: Acute Qualifiers: Hypertension type: essential hypertension Qualified Code(s): I10 - Essential (primary) hypertension (3) Near syncope Status: Acute Core Measure Documentation - Palliative Care Palliative Care/ Comfort Measures: Not Applicable - Core Measures Any of the following diagnoses?: none Exam - Constitutional Vitals: Temp Pulse Resp BP Pulse Ox 98.7 F 72 19 106/63 99 12/03/19 04:25 12/03/19 13:00 12/03/19 09:17 12/03/19 09:47 12/03/19 10:00 General appearance: Present: no acute distress, well-nourished - EENT Eyes: Present: PERRL ENT: hearing intact, clear oral mucosa - Neck Neck: Present: supple, normal ROM - Respiratory Respiratory effort: normal Respiratory: bilateral: CTA - Cardiovascular Heart Sounds: Present: S1 & S2. Absent: rub, click - Extremities Extremities: pulses symmetrical, No edema Peripheral Pulses: within normal limits - Abdominal General gastrointestinal: Present: soft, non-tender, non-distended, normal bowel sounds Male genitourinary: Present: normal - Integumentary Integumentary: Present: clear, warm, dry - Musculoskeletal Musculoskeletal: gait normal, strength equal bilaterally - Psychiatric Psychiatric: appropriate mood/affect, intact judgment & insight - Neurologic Neurologic: CNII-XII intact, moves all extremities Plan Activity: advance as tolerated Weight Bearing Status: Weight Bear as Tolerated Follow up with: PRIMARY CARE, [Referring] - 3-5 Days Forms: AMA Form
== END 2019-12-03 16:57 | disposition left against medical advice (07) ==
LOC: ED 11:18 → 4A 14:18
PROVIDERS: ADMIT Internal Medicine; ATTEND Hospitalist
DX: R55 Syncope and collapse (principal); I10 Essential (primary) hypertension; I25.10 Atherosclerotic heart disease of native coronary artery without angina pectoris; I25.5 Ischemic cardiomyopathy; E11.9 Type 2 diabetes mellitus without complications; E78.5 Hyperlipidemia, unspecified; Z98.890 Other specified postprocedural states; Z79.82 Long term (current) use of aspirin; Z95.9 Presence of cardiac and vascular implant and graft, unspecified; Z86.73 Personal history of transient ischemic attack (TIA), and cerebral infarction without residual deficits; Z87.891 Personal history of nicotine dependence; Z79.899 Other long term (current) drug therapy; Z79.84 Long term (current) use of oral hypoglycemic drugs
CPT/HCPCS: 36415; 70450; 71045; 80048; 80053; 82962; 83735; 84484; 85025; 85610; 85670; 85730; 93005; 97162; 99285; A9270; G0378; J7040; 90471; 90732; G0009